=== PATIENT | female | born 1970 | race Caucasian/White ===

== ENCOUNTER 2019-11-11 16:18 | Inpatient (IN) | payer OTHER, SELFPAY ==
[~2019-11-11] VITALS: Ht 157.5 cm; Wt 74.8 kg
--- NOTE | 2019-11-11 16:18 | NUR ---
PT FAVIAN POWELL TO ER BED 09 Addendum: 11/11/19 at 1638 by MEDWB PT FAVIAN POWELL TO ER BED 02. RN EVALUATING AT BEDSIDE.
[2019-11-11 16:30] VITALS: BP 166/93
--- NOTE | 2019-11-11 17:00 | NUR ---
49 YEAR OLD FEMALE COMPLAINS OF HEADACHE, BODYACHE, AND FEVER X 6 DAYS. PT STATES SHE DOES NOT HAVE A COUGH. PT LUNGS CLEAR BL, BREATHING EVEN AND TACHYPNEA AT 25-30 RR, SPO2 97% ON ROOM AIR. PT AOX4, SKIN WARM AND DRY. BED IN LOWEST POSITION, LOCKED, BED RAIL UPX1. PT PLACED ON MONITOR, ERMD MADE AWARE OF STATUS. PMH - DENIES ALLERGIES - NKA
--- NOTE | 2019-11-11 17:04 | NUR ---
ERMD AT BEDSIDE
[2019-11-11] MEDS ORDERED: NACL 0.9% 1,000 ML IV ONE ×2 (17:10→18:03)
[2019-11-11] MEDS ORDERED: KETOROLAC 30 MG/ML VIAL IVP ONE (17:10)
[2019-11-11] MEDS ORDERED: ACETAMINOPHEN EXTRA STRENGTH 500 MG TAB PO ONE (17:45)
[2019-11-11] MEDS ORDERED: ACETAMINOPHEN EXTRA STRENGTH 500 MG TAB ONE (17:51)
--- NOTE | 2019-11-11 18:42 | NUR ---
PT ALERT AND AWAKE, BREATHING EVEN AND UNLABORED
[2019-11-11 18:51] LABS: HEMATOCRIT 40.5 % (36-48); HEMOGLOBIN 13.3 g/dL (12.0-16.0); MEAN CORPUSCULAR HEMOGLOBIN 28 pg (27-31); MEAN CORPUSCULAR HGB CONC 33 g/dL (33-37); MEAN CORPUSCULAR VOLUME 86.5 fL (80-94); PLATELET COUNT (AUTO) 297 K/uL (140-450); RED BLOOD CELL COUNT(AUTO) 4.68 MIL/uL (4.20-5.40); RED CELL DISTRIBUTION WIDTH 14.6 % (11.6-13.7); WHITE BLOOD COUNT (AUTO) 18.2 K/uL (4.8-10.8)
[2019-11-11 19:09] LABS: ALBUMIN 2.8 g/dL (3.4-5.0); ANION GAP 16.5 (8-16); CARBON DIOXIDE 22.3 mmol/L (21-32); CREATININE 0.8 mg/dL (0.6-1.3); POTASSIUM 3.8 mmol/L (3.5-5.1); TOTAL BILIRUBIN 0.3 mg/dL (0.0-1.0)
[2019-11-11 19:10] LABS: PROTHROMBIN TIME 10.2 secs (10.8-13.4)
[2019-11-11 19:33] LABS: LYMPHOCYTES % (MANUAL) 1 % (20-46); MONOCYTES % (MANUAL) 4 % (5-12); PROMYELOCYTES % 1 % (0-0)
[2019-11-11 19:41] LABS: APPEARANCE,URINE CLOUDY (CLEAR); COLOR,URINE YELLOW (YELLOW); UGLUCOSE NEGATIVE (NEGATIVE)
[2019-11-11 19:42] LABS: BILIRUBIN,URINE NEGATIVE (NEGATIVE); BLOOD, URINE TRACE (NEGATIVE); LEUKOCYTE ESTERASE ,URINE 1+ (NEGATIVE); NITRITE, URINE NEGATIVE (NEGATIVE)
[2019-11-11] MEDS ORDERED: PROCHLORPERAZINE 10 MG/2 ML VIAL IVP ONE (19:55)
--- NOTE | 2019-11-11 20:28 | NUR ---
CONSENT SIGNED BY PT FOR CT
--- NOTE | 2019-11-11 20:46 | NUR ---
PT ALERT AND AWAKE, BREATHING EVEN AND UNLABORED
--- NOTE | 2019-11-11 21:47 | NUR ---
PT ALERT AND AWAKE, BREATHING EVEN AND UNLABORED. PT ON PHONE
--- NOTE | 2019-11-11 21:51 | NUR ---
PT BEING TAKEN TO CT BY WHEELCHAIR
--- NOTE | 2019-11-11 23:10 | NUR ---
REPORT GIVEN TO MEME NUNEZ, TRANSFER OF CARE AT THIS TIME
[2019-11-11] MEDS ORDERED: VANCOMYCIN 1GM/DEXT 5% PREMIX 200 ML IV SCH (23:30)
[2019-11-11] MEDS ORDERED: VANCOMYCIN PER PHARMACY MC PRN (23:30)
--- NOTE | 2019-11-12 00:16 | NUR ---
PT RESTING QUIETLY IN BED, R/R EQUAL, AND UNLABORED. SIDE RAIL X1, BED IN LOW POSITION WILL CONTINUE TO MONITOR.
[2019-11-12] MEDS ORDERED: LORazepam 2 MG/ML VIAL IVP ONE (00:45)
[2019-11-12] MEDS ORDERED: ACETAMINOPHEN 325 MG TAB PO ONE (00:45)
[2019-11-12] MEDS ORDERED: AZITHROMYCIN 250 MG TAB PO SCH (00:55)
[2019-11-12] MEDS: NACL 0.9% 1,000 ML IV SCH ×3 (00:55→18:15)
[2019-11-12] MEDS ORDERED: ALBUTEROL HFA MDI 90 MCG/ACTUATION 8 GM INH PRN (00:55)
[2019-11-12] MEDS ORDERED: ONDANSETRON 4 MG/2 ML VIAL IVP PRN ×2 (00:55→09:25)
[2019-11-12] MEDS ORDERED: BENZONATATE 100 MG CAPLF PO PRN (00:55)
[2019-11-12] MEDS ORDERED: ACETAMINOPHEN 325 MG TAB PO PRN ×2 (00:55→09:25)
[2019-11-12] MEDS ORDERED: NACL 0.9% 1,000 ML IV STA (01:34)
--- NOTE | 2019-11-12 01:39 | NUR ---
PT'S BP: 90/52; P:128 ERMD MADE AWARE.
[2019-11-12 02:03] LABS: FREE T4 (FREE THYROXINE) 1.25 ng/dL (0.76-1.46); MAGNESIUM 1.8 mg/dL (1.8-2.4); PHOSPHORUS 2.8 mg/dL (2.5-4.9); THYROID STIMULATING HORMONE 0.96 uIU/mL (0.34-3.74)
[2019-11-12 02:09] LABS: CHOL/HDL RATIO 5.5 (1-4.5)
--- NOTE | 2019-11-12 02:21 | NUR ---
PT'S BP 119/77; P: 126. ERMD MADE AWARE
--- NOTE | 2019-11-12 02:40 | NUR ---
BP: 126/73; P: 128 ERMD MADE AWARE. R/R EQUAL, AND UNLABORED.
--- NOTE | 2019-11-12 02:51 | NUR ---
1 LITER BOLUS STARTED. Addendum: 11/12/19 at 0251 by MEDWQ [id number] 1 LITER BOLUS STARTED.
[2019-11-12] MEDS ORDERED: KETOROLAC 30 MG/ML VIAL IVP STA (02:57)
--- NOTE | 2019-11-12 03:37 | NUR ---
RECHECKED TEMP: 99.2; P: 115; BP: 138/72 R/R EQUAL, AND MILDLY LABORED. ERMD MADE AWARE.
--- NOTE | 2019-11-12 04:41 | NUR ---
PT APPEARS TO BE SLEEPING IN BED, R/R EQUAL, AND MILDLY LABORED, HR 93, BP : 116/67, ERMD MADE AWARE. SIDE RAIL X1, BED IN LOW POSITION WILL CONTINUE TO MONITOR
--- NOTE | 2019-11-12 05:24 | NUR ---
PT APPEARS TO BE SLEEPING IN BED, R/R EQUAL, AND MILDLY LABORED, VITAL SIGNS WNL HR 94; BP: 112/72 SIDE RAIL X1, BED IN LOW POSITION WILL CONTINUE TO MONITOR
[2019-11-12] MEDS ORDERED: KETOROLAC 30 MG/ML VIAL IVP PRN (06:05)
[2019-11-12] MEDS ORDERED: cefTRIAXone 1,000 MG VIAL ONE (06:34)
--- NOTE | 2019-11-12 07:10 | NUR ---
Pt report given to ENRIQUE PALOMINO. Transfer of care at this time.
--- NOTE | 2019-11-12 08:44 | NUR ---
PATIENT HAS BEEN SCREENED AND CATEGORIZED MODERATE NUTRITION RISK. PATIENT WILL BE SEEN WITHIN 3-5 DAYS OF ADMISSION. 11/14/2019-11/16/[address]
[2019-11-12] MEDS: ENOXAPARIN 80 MG/0.8 ML SYR SUBQ SCH (09:00)
[2019-11-12] MEDS: VITAMIN D 400 IU TAB PO SCH (09:07)
[2019-11-12] MEDS: ASCORBIC ACID 500 MG TAB PO SCH (09:08)
[2019-11-12] MEDS: ZINC SULF 220 MG CAP PO SCH (09:12)
[2019-11-12] MEDS: guaiFENesin 600 MG TABER PO SCH ×2 (09:13→21:00)
[2019-11-12] MEDS: DOCUSATE SODIUM 100 MG GELCAP PO SCH ×2 (09:13→21:16)
[2019-11-12] MEDS ORDERED: DOCUSATE SODIUM 100 MG GELCAP PO PRN (09:25)
[2019-11-12] MEDS ORDERED: MAG SULF 2000 MG/WATER PREMIX 50 ML IV PRN (09:25)
[2019-11-12] MEDS ORDERED: MORPHINE SULFATE 2 MG/ML SYR IVP PRN (09:25)
[2019-11-12] MEDS ORDERED: POTASSIUM CHLORIDE 10 MEQ TABER PO PRN (09:25)
[2019-11-12] MEDS ORDERED: LORazepam 2 MG/ML VIAL IVP PRN (09:25)
--- NOTE | 2019-11-12 09:30 | NUR ---
PT COMPLAINING OF HEADACHE, 8/10 PAIN. WILL MEDICATE
[2019-11-12] MEDS: HYDROcodone/APAP 5/325 MG 1 TAB TAB PO PRN (09:36)
[2019-11-12] MEDS: ALBUTEROL HFA MDI 90 MCG/ACTUATION 8 GM INH SCH ×3 (09:40→18:00)
--- NOTE | 2019-11-12 10:00 | NUR ---
BREAKFAST TRAY PLACED AT PT BEDSIDE. VSS. RESP EVEN AND UNLABORED. NO COMPLAINTS AT THIS TIME
--- NOTE | 2019-11-12 10:30 | NUR ---
PT REQUESTED TO HAVE DROP OFF FOOD AT REFERRAL AND INFORMATION AIDE FOR HER TO EAT. APPROVED BY CHARGE NURSE RN
--- NOTE | 2019-11-12 14:32 | NUR ---
DISCHARGE PLANNING: SONAL CONTACTED MUMTA[facility] FROM [facility] [phone] REGARDING TRANSFERRING PATIENT TO [place]. MUMTAZ TRANSFERRED SW TO [facility] [phone]. PER DEVON, [facility] AND [facility] ARE NOT ACCEPTING PATIENTS AT THIS TIME.
--- NOTE | 2019-11-12 16:15 | NUR ---
PATIENT ARRIVED ON FLOOR VIA GURNEY, PATIENT AMBULATED ON STEADY GAIT TO BED. PATIENT ON ROOM AIR, O2 SATURATION 100%. NO COMPLAINT OF SOB/DISTRESS NOTED. PATIENT DENIES PAIN. ORIENTED PATIENT TO FLOOR, CALL LIGHT, AND BATHROOM, AND TV. VERBALIZED PLAN OF CARE. PATIENT VERBALIZED UNDERSTANDING. CALL LIGHT WITHIN REACH. WILL CONTINUE TO MONITOR PATIENT.
--- NOTE | 2019-11-12 16:17 | NUR ---
Patient will be admitted to care of [facility]. Admited to TELE. Will go to room 126A. Belongings list completed. Report to HUEY NUNEZ.
[2019-11-12 16:20] VITALS: BP 153/82
--- NOTE | 2019-11-12 18:15 | NUR ---
INFORMED PATIENT ABOUT MRSA SWAB, FLU SWAB AND COVID SWAB. PATIENT ASKED WHY SINCE SHE WAS ALREADY SWABBED AT [place] AND RESULTED NEGATIVE WAS FORWARD TO ER STAFF. PATIENT ALSO ASKED ABOUT HER POSSIBLE TRANSFER TO [place] AND HOW LONG THAT WAS GOING TO TAKE. PATIENT CURRENTLY REFUSED BLOOD, MRSA SWAB, FLU SWAB, AND COVID SWAB UNTIL MORE INFORMATION IS GIVEN ABOUT POSSIBLE TRANSFER. PATIENT ALSO ASKED ABOUT POSSIBLE AMA. DR. HEBERT AWARE ABOUT POSSIBLE AMA.
--- NOTE | 2019-11-12 19:30 | NUR ---
REPORT GIVEN TO HOSPITAL SUPERINTENDENT NURSE FANTASMA AT BEDSIDE FOR CONTINUITY OF CARE. ENDORSED POSSIBLE AMA TO HOSPITAL SUPERINTENDENT NURSE WELL MRSA, FLU, AND COVID SWABS IF PATIENT DECIDES TO STAY.
--- NOTE | 2019-11-12 19:31 | NUR ---
RECEIVED REPORT FROM MICHELLE RN, FOR CONTINUITY OF CARE. PT IS AA&OX4. R/O COVID-19; RESPIRATIONS ARE EVEN AND UNLABORED, BREATHING TO RA. LAC 20G IS PATENT AND INTACT. REVIEWED PLAN OF CARE.PT IS DROPLET PRECAUTIONS IN PLACE. TELE MONITOR ATTACHED. SAFETY MEASURES IN PLACE; CALL LIGHT WITHIN REACH, BED IN LOW POSITION. NO ACUTE DISTRESS NOTED. WILL CONTINUE TO MONITOR.
[2019-11-12 20:00] VITALS: BP 139/76
--- NOTE | 2019-11-12 20:30 | NUR ---
RECEIVED REPORT FROM AM SHIFT. PT SEEN AND ASSESSED. PT ON ROOM AIR WITH SPO2 OF 95%. CLEAR BS ON AUSCULTATION. PT IS IN NO APPARENT RESPIRATORY AT THIS TIME. MDI TX GIVEN ORDERED AND PT TOLERATED WELL WITH NO ADVERSE REACTION. WILL CONTINUE TO MONITOR PT.
--- NOTE | 2019-11-12 21:05 | NUR ---
MRSA SPECIMEN COLLECTED.
--- NOTE | 2019-11-12 21:15 | NUR ---
IV FLUIDS HUNG, AND INFUSING PER ORDERS. ORDERED PO COLACE GIVEN, SCHEDULED MUCINEX NOT ADMINISTERED PER PT REFUSAL. MEDICATION EDUCATION PROVIDED. INFLUENZA A/B SPECIMEN COLLECTED. NO ACUTE DISTRESS NOTED. WILL CONTINUE TO MONITOR.
--- NOTE | 2019-11-12 21:15 | NUR ---
PT REFUSED COVID-19 SWAB. PT STATED THAT SHE WAS TOLD THAT SHE TESTED NEGATIVE FOR COVID-19, AND DOES NOT FEEL THAT IT IS NECESSARY TO DO ANOTHER TEST AT THIS TIME.
[2019-11-12 22:50] LABS: HEMATOCRIT 34.8 % (36-48); HEMOGLOBIN 11.5 g/dL (12.0-16.0); MEAN CORPUSCULAR HEMOGLOBIN 29 pg (27-31); MEAN CORPUSCULAR HGB CONC 33 g/dL (33-37); PLATELET COUNT (AUTO) 325 K/uL (140-450); RED BLOOD CELL COUNT(AUTO) 4.05 MIL/uL (4.20-5.40); RED CELL DISTRIBUTION WIDTH 14.1 % (11.6-13.7); WHITE BLOOD COUNT (AUTO) 13.2 K/uL (4.8-10.8)
[2019-11-12 23:12] LABS: LYMPHOCYTES % (MANUAL) 5 % (20-46); MONOCYTES % (MANUAL) 5 % (5-12)
[2019-11-12 23:14] LABS: ALBUMIN 2.4 g/dL (3.4-5.0); ANION GAP 14.7 (8-16); CREATININE 0.9 mg/dL (0.6-1.3); POTASSIUM 3.7 mmol/L (3.5-5.1); TOTAL BILIRUBIN 0.1 mg/dL (0.0-1.0)
[2019-11-12 23:15] LABS: PHOSPHORUS 2.5 mg/dL (2.5-4.9)
--- NOTE | 2019-11-12 23:35 | NUR ---
PT AGREED TO COVID-19 SWAB. PT SWABBED, AND SPECIMEN BROUGHT TO THE LAB.
--- NOTE | 2019-11-12 23:50 | NUR ---
PT SIGNED RELEASE TO RELEASE MEDICAL RECORDS FROM [facility]. ICE CHIPS PROVIDED AT PT'S REQUEST. NO ACUTE DISTRESS NOTED. WILL CONTINUE TO MONITOR.
[2019-11-13] VITALS: BP 135/71
--- NOTE | 2019-11-13 00:40 | NUR ---
PT IS IN NO APPARENT RESPIRATORY AT THIS TIME. MDI TX GIVEN ORDERED AND PT TOLERATED WELL WITH NO ADVERSE REACTION. WILL CONTINUE TO MONITOR PT.
[2019-11-13] MEDS: ZOLPIDEM 10 MG TAB PO PRN (01:23)
--- NOTE | 2019-11-13 01:24 | NUR ---
PT'S IV SITE FOUND INFILTRATED. IV REMOVED, CATHETER INTACT. NEW IV STARTED ON LEFT FA, 20G. PT REQUESTED SLEEP MEDICATION; PRN PO AMBIEN ADMINISTERED. MEDICATION EDUCATION PROVIDED. NO DISTRESS NOTED. WILL CONTINUE TO MONITOR.
[2019-11-13] MEDS: NACL 0.9% 1,000 ML IV SCH ×3 (02:24→21:48)
[2019-11-13 04:00] VITALS: BP 152/86
[2019-11-13 06:27] LABS: BASOPHILS % (AUTO) 0.2 % (0.0-2.0); EOSINOPHILS % (AUTO) 0.1 % (0.0-4.0); HEMATOCRIT 35.6 % (36-48); HEMOGLOBIN 11.7 g/dL (12.0-16.0); LYMPHOCYTES # (AUTO) 1.7 K/uL (2.5-16.5); LYMPHOCYTES % (AUTO) 10.1 % (20.5-51.1); MEAN CORPUSCULAR HEMOGLOBIN 28 pg (27-31); MEAN CORPUSCULAR HGB CONC 33 g/dL (33-37); MEAN CORPUSCULAR VOLUME 86.4 fL (80-94); MONOCYTES # (AUTO) 0.8 K/uL (0.8-1.0); MONOCYTES % (AUTO) 4.9 % (1.7-9.3); NEUTROPHILS % (AUTO) 84.7 % (42.2-75.2); PLATELET COUNT (AUTO) 360 K/uL (140-450); RED BLOOD CELL COUNT(AUTO) 4.12 MIL/uL (4.20-5.40); WHITE BLOOD COUNT (AUTO) 16.5 K/uL (4.8-10.8)
--- NOTE | 2019-11-13 06:29 | NUR ---
PT IS RESTING IN BED, AROUSABLE TO VOICE. IVPB ANTIBIOTICS INFUSING PER ORDERS. SAFETY MEASURES IN PLACE. TELE MONITOR ATTACHED. NO DISTRESS NOTED. WILL ENDORSE TO DAYSHIFT NURSE.
[2019-11-13 07:18] LABS: ANION GAP 17.1 (8-16); CARBON DIOXIDE 20.7 mmol/L (21-32); CREATININE 0.8 mg/dL (0.6-1.3); POTASSIUM 3.8 mmol/L (3.5-5.1)
--- NOTE | 2019-11-13 07:29 | NUR ---
SHIFT REPORT RECEIVED FROM COMMERCIAL TECHNICIAN NURSE. PT IS IN BED AT HIS TIME. NO DISTRESS NOTED. WILL CONTINUE TO MONITOR. CALL LIGHT IN REACH.
[2019-11-13 08:00] VITALS: BP 143/81
[2019-11-13] MEDS ORDERED: AZITHROMYCIN 250 MG TAB PO SCH (09:00)
[2019-11-13] MEDS: DOCUSATE SODIUM 100 MG GELCAP PO SCH ×2 (09:43→21:02)
[2019-11-13] MEDS: ZINC SULF 220 MG CAP PO SCH (09:43)
[2019-11-13] MEDS: ASCORBIC ACID 500 MG TAB PO SCH (09:44)
[2019-11-13] MEDS: VITAMIN D 400 IU TAB PO SCH (09:44)
[2019-11-13] MEDS: guaiFENesin 600 MG TABER PO SCH ×2 (09:45→21:00)
--- NOTE | 2019-11-13 09:45 | NUR ---
PT AMBULATED TO RESTROOM. NO DISTRESS NOTED. VITAL SIGNS NORMAL O2 SATS AT 94%. NO COMPLAINS OF PAIN. PT IS ON ROOM AIR. NO COMPLAINS OF PAIN. IV IN PLACE AND INFUSING. SAFETY MEASURES IN PLACE. CALL LIGHT IN REACH.
[2019-11-13] MEDS: ENOXAPARIN 80 MG/0.8 ML SYR SUBQ SCH (09:56)
[2019-11-13] MEDS: ALBUTEROL HFA MDI 90 MCG/ACTUATION 8 GM INH SCH ×4 (09:57→18:00)
--- NOTE | 2019-11-13 10:12 | NUR ---
SEARCH AND RESCUE OFFICER NOTE: Patient's Orientation Person Situation Place Time Information Provided By BROOKE RABAGO - Comments SW WAS UNABLE TO MEET PATIENT AT BEDSIDE DUE TO MEDICAL CONDITION. Seconds Handler, Realtionship and Phone Number BROOKE RABAGO [phone] Healthcare Power of Manager Sales Support No Does Patient Have a POLST No Identifying Problems No Social Work Triggers Is A Social Work Consult Needed No Mandate Report Filed No Explanation Of Identifying Problems PATIENT IS A 49-YEAR-OLD FEMALE ADMITTED FOR SEPSIS AND R/O COVID. PATIENT HAS PMHX OF MIGRAINES. Admitted From Home Pre-Admission Level Of Functioning Status Independent/Ambulatory Prior Resources/Services Used In Last 12 Months No Prior Resources Used Prior DME No Prior DME Used Living Situation Lives With Family House Patient Had Caregiver No Home Support No Caregiver Issues Financial Issues No Known Financial Issue Referral To The Financial Counselor Needed No Factors/Needs No D/C Needs Identified Pt/Rep Participated In Discharge Plan Yes Patient/Family Agress With Discharge Plan Yes Discharge Plan Comments TENTATIVE DISCHARGE PLAN IS FOR PATIENT TO RETURN HOME. DC Plan Status Initiated
--- NOTE | 2019-11-13 11:39 | NUR ---
DISCHARGE PLANNING: RECEIVED AN ORDER TRANSFER TO CONTRACTED FACILITY. CONTACTED [facility] AT [phone], ABLE TO SPEAK TO KERRY CALDWELL. SHE STATED ASSIGNED JESSY DUTTA/KERRY BOLANOS FOR TODAY. UPDATED HER OF THE PATIENT CONDITION. SHE STATED TO SEND THE ORDER ORDER IN AND CM WILL WORK ON IT. WILL FOLLOW UP. POST STABILIZATION FORM, UPDATED CLINICALS AND ORDER SENT. Addendum: 11/14/19 at 1104 by Fara Heard CM CONTACTED [facility], ABLE TO SPEAK TO JESSY DUTTA. UPDATED HER OF THE PATIENT'S CONDITION. SHE STATED THEY WILL BE WORKING ON THE AUTH, SINCE THEY DO NOT HAVE ANY BEDS AT [facility] OR [place].
--- NOTE | 2019-11-13 11:45 | NUR ---
PT WAS SEEN AMBULATING TO RESTROOM. IV ANTIBIOTICS STARTED ON PT. WILL CONTINUE TO MONITOR. CALL LIGHT IN REACH.
[2019-11-13 12:00] VITALS: BP 143/81
--- NOTE | 2019-11-13 12:00 | NUR ---
PT IS SITTING IN BED. NO DISTRESS NOTED. PT WAS SEEN AMBULATING. CALL LIGHT IN REACH.
[2019-11-13] MEDS: PIPERACILLIN/TAZOBACTAM 3.375 GM in DEXTROSE 5% 50 ML IV SCH ×2 (12:23→18:47)
--- NOTE | 2019-11-13 15:00 | NUR ---
PT IS SITTING IN BED. NO DISTRESS NOTED. O2 SATS AT 93%. CALL LIGHT IN REACH.
[2019-11-13 16:00] VITALS: BP 143/74
--- NOTE | 2019-11-13 17:00 | NUR ---
PT IS SITTING IN BED. NO DISTRESS NOTED. PT WAS SEEN AMBULATING. CALL LIGHT IN REACH.
--- NOTE | 2019-11-13 19:19 | NUR ---
RECEIVED REPORT FROM MICHELLE RN, FOR CONTINUITY OF CARE. PT IS AA&OX4. COVID-19 NEGATIVE. RESPIRATIONS ARE EVEN AND UNLABORED, BREATHING TO RA. LAC 20G IS PATENT AND INTACT. REVIEWED PLAN OF CARE. TELE MONITOR ATTACHED. SAFETY MEASURES IN PLACE; CALL LIGHT WITHIN REACH, BED IN LOW POSITION. NO ACUTE DISTRESS NOTED. WILL CONTINUE TO MONITOR.
--- NOTE | 2019-11-13 19:30 | NUR ---
SHIFT REPORT GIVEN TO IMITATION MARBLE MECHANIC NURSE. PT IS IN STABLE CONDITION. CALL LIGHT IN REACH.
[2019-11-13 20:00] VITALS: BP 142/79
--- NOTE | 2019-11-13 21:03 | NUR ---
PT'S SCHEDULED PO MEDICATION GIVEN., WITH MEDICATION EDUCATION PROVIDED. PT TOLERATED PO MEDICATION WELL. PT'S PLAN OF CARE DISCUSSED AGAIN. NO DISTRESS NOTED. WILL CONTINUE TO MONITOR.
--- NOTE | 2019-11-13 21:48 | NUR ---
IV FLUIDS HUNG AND RUNNING ORDERED. NO DISTRESS NOTED. WILL CONTINUE TO MONITOR.
[2019-11-14] VITALS: BP 145/80
[2019-11-14] MEDS: PIPERACILLIN/TAZOBACTAM 3.375 GM in DEXTROSE 5% 50 ML IV SCH ×5 (01:41→23:34)
--- NOTE | 2019-11-14 01:41 | NUR ---
IV ANTIBIOTICS HUNG, AND INFUSING PER ORDERS. MEDICATION EDUCATION PROVIDED. NO DISTRESS NOTED. WILL CONTINUE TO MONITOR.
[2019-11-14 04:00] VITALS: BP 140/70
[2019-11-14 05:50] LABS: BASOPHILS % (AUTO) 0.2 % (0.0-2.0); EOSINOPHILS % (AUTO) 0.1 % (0.0-4.0); HEMATOCRIT 34.8 % (36-48); HEMOGLOBIN 11.4 g/dL (12.0-16.0); LYMPHOCYTES # (AUTO) 2.7 K/uL (2.5-16.5); LYMPHOCYTES % (AUTO) 16.2 % (20.5-51.1); MEAN CORPUSCULAR HEMOGLOBIN 28 pg (27-31); MEAN CORPUSCULAR HGB CONC 33 g/dL (33-37); MEAN CORPUSCULAR VOLUME 85.4 fL (80-94); MONOCYTES % (AUTO) 6.1 % (1.7-9.3); NEUTROPHILS # (AUTO) 13.1 K/uL (1.8-7.7); NEUTROPHILS % (AUTO) 77.4 % (42.2-75.2); PLATELET COUNT (AUTO) 394 K/uL (140-450); RED BLOOD CELL COUNT(AUTO) 4.08 MIL/uL (4.20-5.40); RED CELL DISTRIBUTION WIDTH 14.2 % (11.6-13.7); WHITE BLOOD COUNT (AUTO) 16.9 K/uL (4.8-10.8)
[2019-11-14] MEDS: ALBUTEROL HFA MDI 90 MCG/ACTUATION 8 GM INH SCH ×4 (06:00→18:00)
--- NOTE | 2019-11-14 06:44 | NUR ---
IVPB ANTIBIOTICS HUNG AND RUNNING PER ORDERS. PT STATES THAT SHE WOULD LIKE TO SHOWER AFTER BREAKFAST. WILL ENDORSE TO DAYSHIFT.
[2019-11-14 06:46] LABS: ANION GAP 16.2 (8-16); CARBON DIOXIDE 22.3 mmol/L (21-32); CREATININE 0.8 mg/dL (0.6-1.3); POTASSIUM 3.5 mmol/L (3.5-5.1)
[2019-11-14] MEDS: HYDROcodone/APAP 5/325 MG 1 TAB TAB PO PRN (06:52)
--- NOTE | 2019-11-14 06:53 | NUR ---
PT COMPLAINS OF 6/10 HEADACHE AND NECK PAIN; PRN PO NORCO GIVEN.
--- NOTE | 2019-11-14 07:28 | NUR ---
ENDORSED TO DAYSHIFT NURSE, FOR CONTINUITY OF CARE. PT IS IN STABLE CONDITION.
--- NOTE | 2019-11-14 07:29 | NUR ---
RECEIVED REPORT FROM ECONOMIC CONSULTANT NURSE DOROTA FOR CONTINUITY OF CARE. PATIENT IN STABLE CONDITION. RESPIRATIONS EVEN AND UNLABORED, ROOM AIR. IV INTACT AND PATENT. SAFETY MEASURES IN PLACE. BED IN LOW POSITION. CALL LIGHT WITHIN REACH. WILL CONTINUE TO MONITOR.
[2019-11-14 08:00] VITALS: BP 142/80
[2019-11-14] MEDS: guaiFENesin 600 MG TABER PO SCH ×2 (09:00→20:57)
--- NOTE | 2019-11-14 09:50 | NUR ---
GAVE ORDERED DUE MEDICATIONS AT THIS TIME. PATIENT TOLERATED WELL. BED IN LOW POSITION. CALL LIGHT WITHIN REACH. WILL CONTINUE TO MONITOR.
[2019-11-14] MEDS: DOCUSATE SODIUM 100 MG GELCAP PO SCH ×2 (10:01→20:49)
[2019-11-14] MEDS: NACL 0.9% 1,000 ML IV SCH ×2 (10:02→17:48)
--- NOTE | 2019-11-14 12:51 | NUR ---
GAVE PRN PAIN MEDICATION PER PATIENT REQUEST. PATIENT TOLERATED WELL. BED IN LOW POSITION. CALL LIGHT WITHIN REACH. WILL CONTINUE TO MONITOR.
[2019-11-14] MEDS ORDERED: APAP/BUTAL/CAFF 325/50/40 MG 1 TAB PO PRN (15:20)
[2019-11-14] MEDS ORDERED: RIZA10TA16 PO (15:24)
[2019-11-14] MEDS ORDERED: RIZATRIPTAN BENZOATE PO PRN (15:25)
--- NOTE | 2019-11-14 17:10 | NUR ---
GAVE REPORT TO DAY SHIFT NURSE RENO FOR CONTINUITY OF CARE. PATIENT IN STABLE CONDITION.
--- NOTE | 2019-11-14 17:11 | NUR ---
RECEIVED REPORT FROM ENRIQUE VAZQUEZ FOR CONTINUITY OF CARE. PT IN STABLE CONDITION AT THIS TIME.
--- NOTE | 2019-11-14 19:03 | NUR ---
WILL ENDORSE PT TO SCREEDMAN FOR CONTINUITY OF CARE. PT IN STABLE CONDITION AT THIS TIME.
--- NOTE | 2019-11-14 19:10 | NUR ---
RECEIVED PT FROM DAY RN IN STABLE CONDITION. PT AOX4 ON ROOM AIR. NO S/S OF RESPIRATORY DISTRESS. ON TELE MONITOR. CARDIAC RHYTHM IS SR. PT INDEPENDENT AND AMBULATORY. SKIN INTACT, WARM AND DRY. IV SITE ON LEFT AC 20G PAINFUL AND INFILTRATED. COVID RESULT NEGATIVE. STANDARD ISOLATION IN PLACE. BED IN LOW POSITION, SIDE RAILS UP X2. CALL LIGHT WITHIN REACH. WILL CONTINUE TO MONITOR.
--- NOTE | 2019-11-14 19:50 | NUR ---
REMOVED INFILTRATED IV ON LEFT AC 20G. IV INTACT. PT TOLERATED WELL. WILL CONTINUE TO MONITOR.
[2019-11-14 20:00] VITALS: BP 119/71
--- NOTE | 2019-11-14 20:00 | NUR ---
PT TELEMONITOR RESULT: HR 78, SINUS RHYTHM
--- NOTE | 2019-11-14 20:15 | NUR ---
RECEIVED REPORT FROM AM SHIFT. PT SEEN AND ASSESSED. PT IS IN NO APPARENT RESPIRATORY DISTRESS AT THIS TIME. PT ON ROOM AIR WITH SPO2 OF 96%, HR 90, RR 18, AND CLEAR BS ON AUSCULTATION. PT REFUSED MDI TX. NO INDICATION FOR MDI TX AT THIS TIME. WILL CONTINUE TO MONITOR PT.
--- NOTE | 2019-11-14 20:15 | NUR ---
PICKED UP AND GAVE PATIENT BELONGINGS DROPPED OFF BY FAMILY FROM THE LOBBY.
--- NOTE | 2019-11-14 20:30 | NUR ---
INSERTED NEW IV ON LEFT AC 22G, ASYMPTOMATIC, INTACT, INFUSING NS AT 100 ML/HR. WILL CONTINUE TO MONITOR. Addendum: 11/14/19 at 2220 by Lovely Estrada RN INSERTED NEW IV ON LEFT FOREARM 22G, ASYMPTOMATIC, INTACT, PATENT, INFUSING NS AT 100 ML/HR. WILL CONTINUE TO MONITOR. 2029
--- NOTE | 2019-11-14 20:50 | NUR ---
ADMINISTERED DUE MEDICATION PER MD. MEDICATION EDUCATION GIVEN. PT VERBALIZED UNDERSTANDING. CALL LIGHT WITHIN REACH. WILL CONTINUE TO MONITOR.
--- NOTE | 2019-11-14 21:30 | NUR ---
PT OFF TELE MONITOR, NO LONGER NEEDED. [facility] PATIENT.
[2019-11-14] MEDS: ZOLPIDEM 10 MG TAB PO PRN (22:40)
--- NOTE | 2019-11-14 22:40 | NUR ---
MEDICATION EDUCATION GIVEN IN REGARDS TO AMBIEN. PT VERBALIZED UNDERSTANDING. WILL CONTINUE TO MONITOR.
--- NOTE | 2019-11-14 22:40 | NUR ---
PT PAIN ON BACK NECK RADIATING DOWN TO LOWER BACK. PT PAIN ON LEFT SIDE ABDOMEN. REQUESTING AMBIEN TO HELP FALL ASLEEP INSTEAD OF MORPHINE. ADMINISTERED AMBIEN PER MD. CALL LIGHT WITHIN REACH. WILL CONTINUE TO MONITOR.
--- NOTE | 2019-11-14 23:47 | NUR ---
PT RESTING IN BED. NO DISTRESS NOTED. CALL LIGHT WITHIN REACH. WILL CONTINUE TO MONITOR
[2019-11-15] VITALS: BP 113/66
--- NOTE | 2019-11-15 01:15 | NUR ---
PT ASLEEP. NO DISTRESS NOTED. WILL CONTINUE TO MONITOR.
[2019-11-15] MEDS: NACL 0.9% 1,000 ML IV SCH (01:21)
--- NOTE | 2019-11-15 03:00 | NUR ---
PT ASLEEP. NO DISTRESS NOTED. WILL CONTINUE TO MONITOR.
--- NOTE | 2019-11-15 05:00 | NUR ---
NOTIFIED RED RASH ON PT SKIN RIGHT UPPER FOREARM. WILL CONTINUE TO MONITOR PT
[2019-11-15] MEDS: PIPERACILLIN/TAZOBACTAM 3.375 GM in DEXTROSE 5% 50 ML IV SCH (06:05)
[2019-11-15 06:28] LABS: HEMATOCRIT 36.6 % (36-48); HEMOGLOBIN 12.2 g/dL (12.0-16.0); MEAN CORPUSCULAR HEMOGLOBIN 29 pg (27-31); MEAN CORPUSCULAR HGB CONC 33 g/dL (33-37); MEAN CORPUSCULAR VOLUME 85.2 fL (80-94); PLATELET COUNT (AUTO) 389 K/uL (140-450); RED CELL DISTRIBUTION WIDTH 13.9 % (11.6-13.7); WHITE BLOOD COUNT (AUTO) 12.4 K/uL (4.8-10.8)
[2019-11-15 06:46] LABS: ANION GAP 13.5 (8-16); CARBON DIOXIDE 26.1 mmol/L (21-32); CREATININE 0.9 mg/dL (0.6-1.3); POTASSIUM 3.6 mmol/L (3.5-5.1)
--- NOTE | 2019-11-15 07:15 | NUR ---
ENDORSED PT IN STABLE CONDITION TO DAY RN FOR CONTINUITY OF CARE.
--- NOTE | 2019-11-15 07:16 | NUR ---
RECEIVED REPORT FROM RN MED SURG NURSE LUCILLE-ENRIQUE. PT RESTING IN BED, AOX4, ON ROOM AIR WITH LEFT FA #22G RUNNING NS @100ML/HR. DISCUSSED PLAN OF CARE AND PT VERBALIZED UNDERSTANDING. CALL LIGHT WITHIN REACH. NO S/S OF RESPIRATORY DISTRESS OR DISCOMFORT NOTED AT THIS TIME. WILL CONTINUE TO MONITOR.
[2019-11-15 08:00] VITALS: BP 116/57
[2019-11-15] MEDS: guaiFENesin 600 MG TABER PO SCH (08:58)
[2019-11-15] MEDS: DOCUSATE SODIUM 100 MG GELCAP PO SCH (08:58)
--- NOTE | 2019-11-15 08:58 | NUR ---
SCHEDULED MEDICATION COLACE GIVEN AND TOLERATED WELL. PT REFUSING MUCINEX. CALL LIGHT WITHIN REACH. NO S/S OF RESPIRATORY DISTRESS OR DISCOMFORT NOTED AT THIS TIME. WILL CONTINUE TO MONITOR.
[2019-11-15 10:40] LABS: BASOPHILS % (MANUAL) 0 % (0-2); EOSINOPHILS % (MANUAL) 1 % (0-4); LYMPHOCYTES % (MANUAL) 30 % (20-46); METAMYELOCYTES % 3 % (0-0); MONOCYTES % (MANUAL) 6 % (5-12)
--- NOTE | 2019-11-15 11:00 | NUR ---
PT RESTING IN BED. CALL LIGHT WITHIN REACH. NO S/S OF RESPIRATORY DISTRESS OR DISCOMFORT NOTED AT THIS TIME. WILL CONTINUE TO MONITOR.
[2019-11-15] MEDS ORDERED: CEPH250C16 PO (11:44)
[2019-11-15 12:11] VITALS: BP 116/57
--- NOTE | 2019-11-15 13:00 | NUR ---
DISCHARGE INSTRUCTIONS GIVEN. PT SIGNED ALL PAPERWORK. IV SITE REMOVED- CATHETER INTACT. ID BANDS REMOVED. PT EATING LUNCH AND WILL GET DRESSED BEFORE CALLING TO BE WALKED TO THE [facility]. CALL LIGHT WITHIN REACH. NO S/S OF RESPIRATORY DISTRESS OR DISCOMFORT NOTED AT THIS TIME. WILL CONTINUE TO MONITOR. Addendum: 11/15/19 at 1325 by Jaylyn Lara RN PT REQUESTING HER MIGRAINE MEDICATION. BOTH TABLETS GIVEN FOR PT TO TAKE BACK HOME.
--- NOTE | 2019-11-15 13:45 | NUR ---
ASSISTED PT TO FRONT LOBBY. PT AMBULATED WITHOUT ASSISTANCE. AND BOTH DAUGHTERS RECEIVED PATIENT IN [facility]. PT STABLE AT THIS TIME.
== END 2019-11-15 13:45 | disposition home or self-care (01) | DRG 872 ==
LOC: MED 16:18 → EEVIPCON 16:18 → MMU 11-12 00:55 → MTU 11-12 08:43 → MMU 11-12 15:25
PROVIDERS: ADMIT General Practice; ATTEND General Practice
DX: A41.9 Sepsis, unspecified organism (principal); N12 Tubulo-interstitial nephritis, not specified as acute or chronic; G43.909 Migraine, unspecified, not intractable, without status migrainosus; Z20.828 Contact with and (suspected) exposure to other viral communicable diseases; E66.9 Obesity, unspecified; N28.9 Disorder of kidney and ureter, unspecified; E78.5 Hyperlipidemia, unspecified; D64.9 Anemia, unspecified; Z68.30 Body mass index [BMI] 30.0-30.9, adult
CPT/HCPCS: 36415; 71045; 71275; 80048; 80053; 81001; 81025; 82150; 82550; 83036; 83605; 83615; 83690; 83735; 83880; 84100; 84439; 84443; 84484; 85025; 85379; 85610; 85651; 85730; 86140; 86886; 86900; 86901; 87040; 87081; 87086; 87186; 87804; 93005; 94664; 96361; 96374; 96375; 99291; J0696; J0780; J1650; J1885; J2060; J2270; J2543; J7030; J7060; Q0092; Q9967; U0003-CS